=== PATIENT | female | born 1960 | race Caucasian/White ===

== ENCOUNTER 2017-05-10 11:37 | Observation (INO) | payer MEDICAID ==
[~2017-05-10] VITALS: Ht 147.3 cm; Wt 55.0 kg
[2017-05-10] MEDS ORDERED: ARIP10TA13 PO (11:58)
[2017-05-10] MEDS ORDERED: FLUO20CA19 PO (11:59)
[2017-05-10 12:28] LABS: PATH.CAST-FLAG NOT PRESENT; SPERM-FLAG NOT PRESENT; SRC-FLAG NOT PRESENT; XTAL-FLAG NOT PRESENT; YLC-FLAG NOT PRESENT
[2017-05-10] MEDS ORDERED: ZIPRASIDONE 20 MG INJ IM ONE ×2 (13:37→14:00)
[2017-05-10 14:53] LABS: ASPARTATE AMINO TRANSFERASE 19 U/L (15-37); BLOOD UREA NITROGEN 17 mg/dL (7-18)
[2017-05-10 14:56] LABS: ACETAMINOPHEN < 2 mcg/mL (10-30)
[2017-05-10 16:18] LABS: DAU SCREEN DISCLAIMER
[2017-05-10] MEDS ORDERED: POTASSIUM CHLORIDE 20 MEQ TAB.ER.PRT PO ONE (16:30)
[2017-05-10] MEDS ORDERED: LORazepam 2 MG/ML, 1ML IM PRN (16:30)
[2017-05-10] MEDS ORDERED: ONDANSETRON ODT 4 MG PO PRN (16:30)
[2017-05-10] MEDS ORDERED: ZIPRASIDONE 20MG CAPSULE PO PRN (16:30)
[2017-05-10] MEDS ORDERED: ZIPRASIDONE 20 MG INJ IM PRN (16:30)
[2017-05-10] MEDS ORDERED: POTASSIUM CHLORIDE 20 MEQ TAB.ER.PRT ONE (17:50)
[2017-05-10] MEDS ORDERED: NICOTINE 14MG/24 HR PATCH.TD24 ONE (17:50)
[2017-05-10] MEDS ORDERED: METF10002 PO (17:57)
[2017-05-10] MEDS: NICOTINE 14MG/24 HR PATCH.TD24 TD SCH (17:58)
[2017-05-10] MEDS ORDERED: ACETAMINOPHEN 325 MG TABLET ONE (18:42)
[2017-05-10] MEDS ORDERED: LORazepam 1MG TABLET ONE (18:42)
[2017-05-10] MEDS: LORazepam 1MG TABLET PO PRN (18:50)
[2017-05-10] MEDS: ACETAMINOPHEN 325 MG TABLET PO PRN (18:50)
[2017-05-10] MEDS ORDERED: ACETAMINOPHEN 325 MG TABLET PO PRN (19:00)
[2017-05-10 22:31] VITALS: BP 165/67
[2017-05-11 00:11] VITALS: BP 149/69
[2017-05-11] MEDS: ACETAMINOPHEN 325 MG TABLET PO PRN ×3 (03:57→20:34)
[2017-05-11 07:35] VITALS: BP 125/54
[2017-05-11] MEDS: FLUOXETINE 20 MG CAPSULE PO SCH (08:53)
[2017-05-11] MEDS ORDERED: ARIPIPRAZOLE 10 MG TABLET PO SCH (09:00)
[2017-05-11 11:50] VITALS: BP 131/76
[2017-05-11] MEDS: LORazepam 1MG TABLET PO PRN ×3 (12:01→20:34)
[2017-05-11] MEDS: NICOTINE 14MG/24 HR PATCH.TD24 TD SCH (15:42)
[2017-05-11] MEDS ORDERED: IBUPROFEN 200 MG TABLET PO PRN (16:30)
[2017-05-11 19:45] VITALS: BP 169/70
[2017-05-11] MEDS ORDERED: ZIPRASIDONE 20 MG INJ IM PRN (20:30)
[2017-05-11] MEDS: ARIPIPRAZOLE 10 MG TABLET PO SCH (20:34)
[2017-05-11 20:55] VITALS: BP 151/71
[2017-05-12] MEDS: ACETAMINOPHEN 325 MG TABLET PO PRN (06:03)
[2017-05-12 07:55] VITALS: BP 119/71
[2017-05-12] MEDS: FLUOXETINE 20 MG CAPSULE PO SCH (08:56)
[2017-05-12] MEDS: ARIPIPRAZOLE 10 MG TABLET PO SCH ×2 (08:56→20:22)
[2017-05-12] MEDS: NICOTINE 21 MG/24 HR PATCH.TD24 TD SCH (09:00)
[2017-05-12] MEDS: LORazepam 1MG TABLET PO PRN ×2 (13:20→20:21)
[2017-05-12 20:00] VITALS: BP 154/79
[2017-05-12] MEDS: DIPHENHYDRAMINE 50 MG CAPSULE PO PRN (21:58)
[2017-05-13] MEDS: ACETAMINOPHEN 325 MG TABLET PO PRN (05:02)
[2017-05-13 07:21] VITALS: BP 140/75
[2017-05-13] MEDS: FLUOXETINE 20 MG CAPSULE PO SCH (07:58)
[2017-05-13] MEDS: ARIPIPRAZOLE 10 MG TABLET PO SCH ×2 (07:59→20:04)
[2017-05-13] MEDS: NICOTINE 21 MG/24 HR PATCH.TD24 TD SCH (07:59)
[2017-05-13] MEDS: LORazepam 1MG TABLET PO PRN (09:12)
[2017-05-13] MEDS: ZIPRASIDONE 20MG CAPSULE PO PRN (09:12)
[2017-05-13] MEDS: metFORMIN 500 MG TABLET PO SCH (16:52)
[2017-05-13 20:03] VITALS: BP 138/70
[2017-05-14] MEDS: ZIPRASIDONE 20MG CAPSULE PO PRN ×2 (03:56→08:32)
[2017-05-14 08:00] VITALS: BP 146/76
[2017-05-14] MEDS: metFORMIN 500 MG TABLET PO SCH ×2 (08:31→16:30)
[2017-05-14] MEDS: FLUOXETINE 20 MG CAPSULE PO SCH (08:32)
[2017-05-14] MEDS: LORazepam 1MG TABLET PO PRN (08:32)
[2017-05-14] MEDS: NICOTINE 21 MG/24 HR PATCH.TD24 TD SCH (08:32)
[2017-05-14] MEDS: ARIPIPRAZOLE 10 MG TABLET PO SCH ×2 (08:32→20:35)
[2017-05-14] MEDS ORDERED: ACETAMINOPHEN 650 MG SUPP PR PRN (09:30)
[2017-05-14] MEDS ORDERED: ACETAMINOPHEN 325 MG TABLET PO PRN (09:30)
[2017-05-14 19:34] VITALS: BP 145/84
[2017-05-14] MEDS: DIPHENHYDRAMINE 50 MG CAPSULE PO PRN (20:35)
[2017-05-15] MEDS: LORazepam 1MG TABLET PO PRN ×2 (03:39→11:03)
[2017-05-15 07:24] VITALS: BP 158/82
[2017-05-15] MEDS: metFORMIN 500 MG TABLET PO SCH (08:06)
[2017-05-15] MEDS: ARIPIPRAZOLE 10 MG TABLET PO SCH (09:00)
[2017-05-15] MEDS: FLUOXETINE 20 MG CAPSULE PO SCH (09:00)
[2017-05-15] MEDS: NICOTINE 21 MG/24 HR PATCH.TD24 TD SCH (09:00)
== END 2017-05-15 12:30 ==
LOC: ED 14:51 → EDIP 16:21 → INTOOBSV 16:21 → 3E 21:39
PROVIDERS: ADMIT Internal Medicine; ATTEND Hospitalist
DX: F23 Brief psychotic disorder (principal); F31.9 Bipolar disorder, unspecified; R45.851 Suicidal ideations; M79.675 Pain in left toe(s); F17.210 Nicotine dependence, cigarettes, uncomplicated; E11.9 Type 2 diabetes mellitus without complications; F12.90 Cannabis use, unspecified, uncomplicated; I10 Essential (primary) hypertension; G89.29 Other chronic pain
CPT/HCPCS: 36415; 80053; 80307; 80329; 81001; 82607; 82746; 82962; 84443; 85025; 87086; 96372; 99285; G0378; J3486; G0480

== ENCOUNTER 2017-12-05 08:47 | Emergency (ER) | payer MEDICAID ==
[~2017-12-05] VITALS: Ht 149.9 cm; Wt 50.0 kg
[~2017-12-05 08:47] MED LIST: ARIP10TA33 PO; FLUO20CA19 PO; METF10002 PO
[2017-12-05 08:48] VITALS: BP 120/82
[2017-12-05 10:32] LABS: ALANINE AMINOTRANSFERASE 19 U/L (12-78); ALBUMIN 3.9 g/dL (3.4-5.0); ANION GAP 9 mmol/L (5-15); CALCIUM 8.9 mg/dL (8.5-10.1); CHLORIDE 107 mmol/L (98-107); CREATININE 0.93 mg/dL (0.55-1.02); SALICYLATE LEVEL 3.2 mg/dL (2.8-20.0)
[2017-12-05 10:35] LABS: ALKALINE PHOSPHATASE 132 U/L (45-117); BILIRUBIN,TOTAL 0.2 mg/dL (0.2-1.0); TOTAL PROTEIN 7.3 g/dL (6.4-8.2)
[2017-12-05 10:38] LABS: ACETAMINOPHEN < 2 mcg/mL (10-30)
[2017-12-05 10:47] LABS: MEAN CORPUSCULAR HEMOGLOBIN 31.9 pg (27.0-34.8); MEAN CORPUSCULAR HGB CONC 32.9 g/dL (32.4-35.8); MEAN PLATELET VOLUME 11.2 fL (7.4-10.4); PLATELET COUNT 300 x10^3/uL (130-400); RED BLOOD COUNT 4.01 x10^6/uL (3.82-5.3); RED CELL DISTRIBUTION WIDTH 14.6 % (9.6-15.2)
[2017-12-05 10:48] LABS: BASOPHILS # (AUTO) 0.05 x10^3/uL (0-0.1); BASOPHILS % (AUTO) 1 % (0-1); EOSINOPHILS # (AUTO) 0.18 x10^3/uL (0-0.4); EOSINOPHILS % (AUTO) 2 % (1-7); LYMPHOCYTES # (AUTO) 3.02 x10^3/uL (1-3.4); LYMPHOCYTES % (AUTO) 35 % (22-44); MD SCAN; MONOCYTES # (AUTO) 0.53 x10^3/uL (0.2-0.8); MONOCYTES % (AUTO) 6 % (2-9); NEUTROPHILS % (AUTO) 56 % (42-75)
[2017-12-05] MEDS ORDERED: SODIUM CHLORIDE 0.9% 1,000ML IVBOLUS ONE (11:30)
[2017-12-05] MEDS ORDERED: ZIPRASIDONE 20 MG INJ IM ONE (11:30)
[2017-12-05 11:32] LABS: AMPHETAMINE SCREEN, URINE Negative (Negative); BARBITURATE SCREEN, URINE Negative (Negative); BENZODIAZEPINE SCREEN, URINE Negative (Negative); CANNABINOID SCREEN, URINE Negative (Negative); COCAINE SCREEN, URINE Negative (Negative); METHADONE SCREEN, URINE Negative (Negative); OPIATE SCREEN, URINE Negative (Negative)
== END 2017-12-05 14:24 | disposition home or self-care (01) ==
LOC: ED 13:00
DX: J00 Acute nasopharyngitis [common cold] (principal); E11.9 Type 2 diabetes mellitus without complications; I10 Essential (primary) hypertension; F17.210 Nicotine dependence, cigarettes, uncomplicated
CPT/HCPCS: 36415; 71046; 80053; 80307; 80329; 85025; 99285; G0480